=== PATIENT | male | born 1985 | race Caucasian/White ===

== ENCOUNTER 2024-07-07 16:19 | Emergency (ER) | payer OTHER ==
[~2024-07-07] VITALS: Ht 172.7 cm; Wt 71.8 kg
[2024-07-07] MEDS ORDERED: MECLIZINE HCL 25 MG TABLET ONE (16:56)
[2024-07-07 17:06] LABS: BASOPHILS # (AUTO) 0.1 K/uL (0.0-0.2); BASOPHILS % (AUTO) 0.5 % (0.0-2.0); EOSINOPHILS % (AUTO) 0.2 % (0.0-6.0); HEMATOCRIT 44 % (39-51); HEMOGLOBIN 14.7 g/dL (13.5-17.5); LYMPHOCYTES # (AUTO) 1.2 K/uL (0.8-4.8); LYMPHOCYTES % (AUTO) 8.6 % (20.0-44.0); MEAN CORPUSCULAR HEMOGLOBIN 29 PG (26.0-33.0); MEAN CORPUSCULAR HGB CONC 34 g/dl (31.0-36.0); MEAN CORPUSCULAR VOLUME 87 fL (80-96); MONOCYTES # (AUTO) 0.6 K/uL (0.1-1.30); MONOCYTES % (AUTO) 4.5 % (2.0-12.0); NEUTROPHILS % (AUTO) 86.2 % (43.0-81.0); PLATELET COUNT (AUTO) 247 K/uL (150-450); RED BLOOD CELL COUNT(AUTO) 5.05 MIL/uL (4.5-6.0); RED CELL DISTRIBUTION WIDTH 13.5 % (11.5-15.0); WHITE BLOOD COUNT (AUTO) 13.9 K/uL (4.3-11.0)
[2024-07-07] MEDS: IV NS 0.9% 1,000 ML BAG IV ONE (17:06)
[2024-07-07] MEDS: MECLIZINE HCL 25 MG TABLET PO ONE (17:06)
[2024-07-07 17:12] LABS: CALCIUM, SERUM 8.7 mg/dL (8.5-10.1); CREATININE 1.1 mg/dL (0.6-1.3); POTASSIUM 3.7 mmol/L (3.5-5.1)
[2024-07-07 17:18] LABS: ALBUMIN 3.9 g/dL (3.4-5.0); BILIRUBIN,TOTAL 0.6 mg/dL (0.2-1.0); TOTAL PROTEIN, SERUM 7.3 g/dL (6.4-8.2)
[2024-07-07] MEDS ORDERED: AMOX/CLAVULANATE 875 MG TABLET ONE (18:19)
[2024-07-07] MEDS ORDERED: KETOROLAC TROMETHAMINE 15 MG/ML VIAL ONE (18:19)
[2024-07-07] MEDS ORDERED: dexaMETHasone SOD PHOSPHATE 1 ML ONE (18:19)
[2024-07-07] MEDS: dexaMETHasone SOD PHOSPHATE 10 MG/ML VIAL IV ONE (18:25)
[2024-07-07] MEDS: AMOX/CLAVULANATE 875 MG TABLET PO ONE (18:26)
[2024-07-07] MEDS: KETOROLAC TROMETHAMINE 15 MG/ML VIAL IV ONE (18:26)
[2024-07-07] MEDS ORDERED: ONDA4TAB5 PO (18:51)
[2024-07-07] MEDS ORDERED: MECL-159 PO (18:51)
[2024-07-07] MEDS ORDERED: AMOX-430 PO (18:51)
[2024-07-07] MEDS ORDERED: OFLO5DRO5 RIGHT EAR (18:51)
[2024-07-07 19:30] VITALS: BP 125/80; TEMP 98.5; O2SAT 98
== END 2024-07-07 19:30 | disposition home or self-care (01) ==
LOC: ER 16:23
DX: H81.399 Other peripheral vertigo, unspecified ear (principal); H66.91 Otitis media, unspecified, right ear; Z60.2 Problems related to living alone
CPT/HCPCS: 99285; 96374; 70450; 96361; 96375; 85025; 36415; 80053; J1885; J8597; J1100; J7030